=== PATIENT | female | born 1965 | race Caucasian/White ===

== ENCOUNTER → 2019-06-23 | Outpatient (CLI) | payer BC ==
--- NOTE | 2019-06-23 16:47 | RAD ---
Chest, PA and Lateral: Technique: PA and lateral views of the chest were obtained. History: Cough, wheezing. Comparison: 04/29/2011. Findings: Unchanged heart size.. The lungs are clear. The pleural margins are clear. Impression: No acute chest process is seen. Electronically signed by: Harley Mujica MD (06/23/2019 4:44 PM) [facility]
== END | disposition home or self-care (01) ==
LOC: DXRAD 10:22
PROVIDERS: ATTEND Registered Nurse
DX: R06.2 Wheezing (principal); R05 Cough
CPT/HCPCS: 71046

== ENCOUNTER → 2019-07-03 | Outpatient (CLI) | payer BC ==
--- NOTE | 2019-07-03 16:04 | RAD ---
ABDOMEN LTD History: Right abdominal pain Comparison: None. Findings: Multiple sonographic images of the abdomen are submitted. Gallbladder is present without intraluminal abnormality, wall thickening, pericholecystic fluid. Right lobe of the liver measured 14.4 cm longitudinal. No focal hepatic lesion is demonstrated. Hepatic echogenicity is within normal limits. Common bile duct is within limits at 0.6 cm. Right kidney measured 12.1 cm longitudinal, no hydronephrosis. There is no abnormality of the visualized pancreas. There is segmental visualization of the inferior vena cava. Impression: 1. No significant abnormality is demonstrated. Electronically signed by: Kwesi Saenz MD (07/03/2019 4:01 PM) [facility]
== END | disposition home or self-care (01) ==
LOC: US 08:30
PROVIDERS: ATTEND Registered Nurse
DX: R10.11 Right upper quadrant pain (principal)
CPT/HCPCS: 76705

== ENCOUNTER → 2019-09-11 | Outpatient (CLI) | payer BC ==
--- NOTE | 2019-09-11 11:56 | CARD ---
MR#: [id number] Date of Study: 09/11/2019 Ordering Physician: ELLIE ANG, Referring Physician: ELLIE ANG, Tech: Lise Rawls DARSHAN APPROVED REPORT EXAM: Two-dimensional and M-mode echocardiogram with Doppler and color Doppler. Other Information Quality : Good INDICATION Non-ischemic Cardiomyopathy 2D DIMENSIONS RVDd2.7 (2.9-3.5cm)Left Atrium(2D)4.7 (1.6-4.0cm) IVSd1.0 (0.7-1.1cm)Aortic Root(2D)2.5 (2.0-3.7cm) LVDd7.5 (3.9-5.9cm)LVOT Diameter2.1 (1.8-2.4cm) PWd0.9 (0.7-1.1cm)LVDs6.3 (2.5-4.0cm) FS (%) 7.0 %SV97.2 ml LVEF(%)15.0 (>50%) M-Mode DIMENSIONS LVDd6.66 (4.0-5.6cm)MV EPSS2.7 (<0.5cm) FS (%) 4 %LVDs6.39 (2.0-3.8cm) ESV(Teich)207.5 mlLVEF(%)9 (>50%) Aortic Valve AoV Peak Jesus.112.3cm/sAoV VTI15.9cm AO Peak GR.5.0mmHgLVOT Peak Jesus.75.3cm/s LVOT VTI 11.41cmAO Mean GR.3mmHg CORNELIA (VMAX)2.53ho2WBY (VTI)2.39cm2 AI P 1/2 Xpkr826sm Mitral Valve MV E Gppoedks873.1cm/sMV DECEL KCTS31pk MV A Kxcicvil40.9cm/sE/A Ratio3.2 Tricuspid Valve TR P. Gjfekzdl567fr/sRAP BBVHCXNO5bwCr TR Peak Gr.59nuOwLQRC62dvIn Pulmonary Vein S1 Vwubjjie22.5cm/sD2 Zvxjqeeb01.3cm/s LEFT VENTRICLE The Left Ventricle is severely dilated. There is normal left ventricular wall thickness. Left ventric le systolic function is severely impaired. The Ejection Fraction is 10-15%. There is severe global hy pokinesis of the left ventricle. RIGHT VENTRICLE The right ventricle is normal size. The right ventricular systolic function is normal. ATRIA The left atrium is mildly dilated. The right atrium size is normal. The interatrial septum is intact with no evidence for an atrial septal defect or patent foramen ovale as noted on 2-D or Doppler imagi ng. AORTIC VALVE The aortic valve is calcified but opens well. Doppler and Color Flow revealed trace to mild aortic re gurgitation. There is no significant aortic valvular stenosis. MITRAL VALVE The mitral valve is calcified but opens well. Mitral annular calcification is mild. There is no evide nce of mitral valve prolapse. There is no mitral valve stenosis. Doppler and Color-flow revealed mode rate mitral regurgitation. TRICUSPID VALVE The tricuspid valve is normal in structure and function. Doppler and Color Flow revealed mild tricusp id regurgitation. There is moderate pulmonary hypertension. The PA pressure was estimated at 59 mmHg. There is no tricuspid valve stenosis. PULMONIC VALVE Doppler and Color Flow revealed trace to mild pulmonic valvular regurgitation. There is no pulmonic v alvular stenosis. GREAT VESSELS The aortic root is normal in size. The ascending aorta is mildly dilated at 3.3 cm. The IVC is normal in size and collapses >50% with inspiration. PERICARDIAL EFFUSION There is no evidence of significant pericardial effusion. Critical Notification Critical Value: No <Conclusion> The Left Ventricle is severely dilated. Left ventricle systolic function is severely impaired. The Ejection Fraction is 10-15%. Doppler and Color-flow revealed moderate mitral regurgitation. Signed by : Ellie Ang, Electronically Approved : 09/11/2019 11:55:32
== END | disposition home or self-care (01) ==
LOC: ECHO 07:57
PROVIDERS: ATTEND Internal Medicine Cardiovascular Disease
DX: I08.8 Other rheumatic multiple valve diseases (principal); I27.20 Pulmonary hypertension, unspecified
CPT/HCPCS: 93306

== ENCOUNTER → 2019-11-06 | Outpatient (CLI) | payer BC ==
--- NOTE | 2019-11-06 10:34 | RAD ---
CT CHEST WO CONTRAST INDICATION: Right-sided chest pain. COMPARISON STUDY: None. TECHNIQUE: Unenhanced axial images were obtained through the lungs and upper abdomen. Coronal and sagittal multiplanar reconstructions were also obtained. PQRS compliance statement: One or more of the following individualized dose reduction techniques were utilized for this examination: 1. Automated exposure control 2. Adjustment of the mA and/or kV according to patient size 3. Use of iterative reconstruction technique FINDINGS: Lungs and Airways: Several indeterminate pulmonary nodules with branch sales and service representative nodules as follows: Left upper lobe solid nodule measuring 0.7 cm (series 2 image 41) and left lower lobe solid nodule measuring 0.6 cm (image 49). Normal central airways. Pleura: The pleural spaces are normal. Heart and Mediastinum: The visualized thyroid gland is normal in size and attenuation. No axillary or supraclavicular lymphadenopathy. Enlarged right lower paratracheal lymph node measures 1.3 cm short axis. Enlarged partially calcified left cardiophrenic lymph node measuring 0.9 cm. Cardiomegaly. Trace pericardial fluid. Coronary artery atherosclerotic disease. Atherosclerosis of the thoracic aorta and branch vessels. Abdomen: The visualized abdominal organs demonstrate no abnormality. Bones and Soft Tissues: Degenerative changes of the spine. IMPRESSION: 1. Several indeterminate pulmonary nodules measuring up to 0.7 cm. Recommend 3-6 month follow-up chest CT to assess stability. 2. There are a couple of mildly enlarged mediastinal lymph nodes. Attention on follow-up imaging. 3. Cardiomegaly and coronary artery atherosclerotic disease. Electronically signed by: Kwesi Caldwell MD (11/06/2019 10:31 AM) [id number]
== END | disposition home or self-care (01) ==
LOC: CT 09:56
PROVIDERS: ATTEND Physician Assistant Medical
DX: R91.1 Solitary pulmonary nodule (principal); I70.0 Atherosclerosis of aorta; R59.0 Localized enlarged lymph nodes; I51.7 Cardiomegaly
CPT/HCPCS: 71250

== ENCOUNTER → 2019-12-04 | Outpatient (CLI) | payer BC ==
[~2019-12-04] MED LIST: IOHEXOL 240 MG/ML 50ML VIAL. ONE; IOHEXOL 240 MG/ML 50ML VIAL. PO ONE; IOHEXOL 300 MG/ML 75 ML VIAL. IV ONE
[2019-12-04 08:40] LABS: CREATININE 1.2 mg/dL (0.6-1.0)
--- NOTE | 2019-12-04 10:21 | RAD ---
EXAM: CT Abdomen and Pelvis with IV contrast INDICATION: Reason: RIGHT SIDED ABDOMEN PAIN X 6 MONTHS, NODULES SEEN ALSO / Spl. Instructions: CREAT 1.2/GFR 60 - REDUCED OMNI 300 TO 60ML IV / TECHNIQUE: Multi-detector row CT images were acquired from the lung bases through the abdomen and pelvis with the use of IV contrast. Portal venous phase images were acquired. Sagittal and coronal images were acquired from the transaxial data. All CT scans performed at this facility utilize dose optimization techniques as appropriate to the exam, including the following: Automated exposure control and adjustment of the mA and/or KV according to patient size (this includes techniques or standardized protocols for targeted exams where dose is indication/reason for exam). IV CONTRAST: Administered ORAL CONTRAST: Administered COMPARISON: Abdominal ultrasound 07/03/2019 FINDINGS: LOWER CHEST: Intraventricular dilation. Calcifications in the visualized aortic valve. LIVER: Heterogeneous enhancement is present near the hilum between hepatic segments 4A and 4B. Hepatic arterial anatomy is difficult to assess given the predominantly portal venous phase images acquired.. BILIARY SYSTEM: Gallbladder is unremarkable. Bile ducts are not dilated. PANCREAS: Unremarkable SPLEEN: Unremarkable ADRENALS: Mild nodular fullness of the left adrenal gland measuring 1.1 x 1.6 cm (image 31 series 2) is noted. The right adrenal gland is unremarkable. KIDNEYS & URETERS: Unremarkable BLADDER: Unremarkable REPRODUCTIVE ORGANS: Unremarkable GASTROINTESTINAL: The stomach, small bowel, and colon are unremarkable. The appendix is normal. MESENTERY/PERITONEUM/RETROPERITONEUM: Unremarkable VASCULAR: Extensive arterial calcifications are present along with extensive noncalcified plaque throughout the abdominal aorta which measures up to 2.2 cm distally. Scattered arterial calcifications along the length of the right renal artery are noted. LYMPH NODES: No adenopathy OSSEOUS & SOFT TISSUES: Unremarkable IMPRESSION: 1. Evidence of extensive arterial vascular disease with heavy plaque burden in the abdominal aorta and including the right renal artery. Due to phase of contrast enhancement, the hepatic artery is not well visualized. There is abnormal heterogeneous enhancement in the lateral left hepatic lobe that could reflect variant perfusion or segmental infarcts. CT angiography of the abdomen or abdominal vascular duplex ultrasound could be pursued in further evaluation of arterial stenosis if clinically suspected. 2. There is dilation of the left ventricular chamber and scattered calcifications of the aortic valve. Correlate clinically for any evidence of aortic valvular disease and/or dilated cardiomyopathy. Electronically signed by: Sierra Devine MD (12/04/2019 10:18 AM) [id number]
== END | disposition home or self-care (01) ==
LOC: CT 07:55
PROVIDERS: ATTEND Internal Medicine Critical Care Medicine
DX: I70.0 Atherosclerosis of aorta (principal); I70.1 Atherosclerosis of renal artery; I99.8 Other disorder of circulatory system
CPT/HCPCS: 36415; 74177; 82565; 84520; Q9966; Q9967

== ENCOUNTER → 2020-02-26 | Outpatient (CLI) | payer BC ==
[2020-02-26 12:56] LABS: CALCIUM 9.3 mg/dL (8.5-10.1); CREATININE 1.2 mg/dL (0.6-1.0); POTASSIUM 3.9 mmol/L (3.5-5.1)
== END ==
LOC: LAB 12:11
PROVIDERS: ATTEND Internal Medicine Advanced Heart Failure and Transplant Cardiology
DX: I42.8 Other cardiomyopathies (principal); I27.21 Secondary pulmonary arterial hypertension; I47.2 Ventricular tachycardia; I50.22 Chronic systolic (congestive) heart failure; I11.0 Hypertensive heart disease with heart failure
CPT/HCPCS: 36415; 80048

== ENCOUNTER → 2020-02-26 | Outpatient (CLI) | payer BC ==
[2020-02-26 13:05] LABS: ALBUMIN 3.6 g/dL (3.4-5.0); ALBUMIN/GLOBULIN RATIO 0.8 (1.0-1.7); CALCIUM 9.4 mg/dL (8.5-10.1); CREATININE 1.3 mg/dL (0.6-1.0); GFR 42.8; POTASSIUM 3.8 mmol/L (3.5-5.1); TOTAL BILIRUBIN 0.5 mg/dL (0.2-1.0); TOTAL PROTEIN 7.9 g/dL (6.4-8.2)
== END | disposition home or self-care (01) ==
LOC: LAB 12:01
PROVIDERS: ATTEND Internal Medicine Cardiovascular Disease
DX: I42.9 Cardiomyopathy, unspecified (principal)
CPT/HCPCS: 36415; 80053; 83880

== ENCOUNTER → 2020-03-18 | Outpatient (CLI) | payer BC ==
[2020-03-18 15:22] LABS: CREATININE 1.1 mg/dL (0.6-1.0); POTASSIUM 3.8 mmol/L (3.5-5.1)
== END | disposition home or self-care (01) ==
LOC: LAB 14:15
PROVIDERS: ATTEND Nurse Practitioner Family
DX: I50.22 Chronic systolic (congestive) heart failure (principal)
CPT/HCPCS: 36415; 80048

== ENCOUNTER → 2020-04-02 | Outpatient (CLI) | payer BC ==
[2020-04-02 13:19] LABS: CALCIUM 9.2 mg/dL (8.5-10.1); CREATININE 1.1 mg/dL (0.6-1.0); POTASSIUM 3.7 mmol/L (3.5-5.1)
== END | disposition home or self-care (01) ==
LOC: LAB 12:01
PROVIDERS: ATTEND Nurse Practitioner Family
DX: I50.22 Chronic systolic (congestive) heart failure (principal)
CPT/HCPCS: 36415; 80048

== ENCOUNTER → 2020-04-10 | Outpatient (CLI) | payer BC ==
[2020-04-10 18:24] LABS: CALCIUM 9.5 mg/dL (8.5-10.1); CREATININE 1.2 mg/dL (0.6-1.0)
== END ==
LOC: LAB 16:54
PROVIDERS: ATTEND Nurse Practitioner Family
DX: I10 Essential (primary) hypertension (principal)
CPT/HCPCS: 36415; 80048

== ENCOUNTER 2020-05-14 12:09 | Inpatient (IN) | payer BC ==
[~2020-05-14] VITALS: Ht 162.6 cm; Wt 73.4 kg
[2020-05-14] MEDS ORDERED: ASPIRIN CHEWABLE 81 MG TABLET. PO ONE (12:30)
--- NOTE | 2020-05-14 12:30 | EKG ---
[address] [address] Test Date: 2020-05-14 Test Time: 12:25:46 Pat Name: HOLLY QUIROZ Department: Room: Gender: F On Line Csr: JAXON : 1965 Requested By: GLEN HEREDIA Order Number: [id number] Reading MD: Andrei Wood Measurements Intervals [place] Rate: 68 P: 51 AL: 172 QRS: -48 QRSD: 150 T: 109 QT: 482 QTc: 518 Interpretive Statements SINUS RHYTHM ABNORMAL LEFT AXIS DEVIATION NON SPECIFIC INTRAVENTRICULAR BLOCK ABNORMAL ECG RI6.02 No previous ECG available for comparison Electronically Signed On 05-17-2020 15:49:52 ELECTRICAL ASSISTANT by Andrei Wood
--- NOTE | 2020-05-14 12:32 | PHYS DOC ---
Past History Past Medical History: CAD, CHF (Ejection fraction 10%) Adult General Chief Complaint Chief Complaint: BACK PAIN OR INJURY [facility] HPI Patient is a 54-year-old female who presents via POV for chest pain. This is an acute on chronic phenomenon, has extensive cardiovascular history and is well- established in outpatient setting with Dr. Chase. She has a known ejection fraction last checked within this past year of 10%. She has been on Entresto medication for the last 3 weeks and has been taking all medications as scheduled, reports weight has fluctuated give her take 2 pounds in past 1 month but does admit to increased shortness of breath when laying flat which is new for her. She does admit when she started Entresto, her previously prescribed Lasix 40 mg twice daily was decreased to 20 mg twice daily. Nonetheless, patient has been wearing a LifeVest since September. Reports she had been having left-sided breast pain which she attributed to the LifeVest which is focused under her left lateral portion of her breast which is deep and radiates to her sternum and left scapular region. States this pain was constant prompting her to remove the LifeVest, she has not worn this in the past 4 days. Nothing known makes better or worse. Pain is deep and described as pressure. Currently ranks the pain 8 out of 10 in severity and states it is been this severe for the past 4 days. She has not been sleeping well. She has follow-up in outpatient setting with cardiology June 14 but feels she cannot make it until that visi t. She has tried numerous fbie-ubo-ilpreqk therapies such as lidocaine patches, Tums etc. but nothing has relieved her pain. Review of Systems Review of Systems Fourteen body systems of review of systems have been reviewed. See HPI for pertinent positives and negative responses, other gonzalez all other systems are negative, non-pertinent or non-contributory Allergies Allergies Allergies Coded Allergies Type Severity Reaction Last Updated Verified No Known Drug Allergies 12/04/19 No Physical Exam Physical Exam Constitutional: Well developed, well nourished, no acute distress, non-toxic appearance. HENT: Normocephalic, atraumatic, bilateral external ears normal, oropharynx moist, no oral exudates, nose normal. Eyes: PERRLA, EOMI, conjunctiva normal, no discharge. Neck: Normal range of motion, no tenderness, supple, no stridor. Cardiovascular: Heart rate regular, sinus rhythm, no murmurs rubs or gallops Lungs & Thorax: Bilateral breath sounds clear to auscultation Abdomen: Bowel sounds normal, soft, no tenderness, no masses, no pulsatile masses. Nonsurgical abdomen, no peritoneal signs Skin: Warm, dry, no erythema, no rash. Back: No tenderness, no CVA tenderness. Extremities: No tenderness, no cyanosis, no clubbing, ROM intact, no edema. Neurologic: Alert and oriented X 3, grossly normal motor & sensory function, no focal deficits noted. Psychologic: Affect normal, judgement normal, mood normal. Current Patient Data Vital Signs Vital Signs Date Time Temp Pulse Resp B/P (MAP) Pulse Ox O2 Delivery O2 Flow Rate FiO2 05/14/20 12:20 97.9 85 18 132/88 (103) 99 Room Air Lab Results Laboratory Tests Test 05/14/20 12:30 White Blood Count 7.4 x10^3/uL (4.0-11.0) Red Blood Count 3.84 x10^6/uL (3.50-5.40) Hemoglobin 11.7 g/dL (12.0-15.5) Hematocrit 36.1 % (36.0-47.0) Mean Corpuscular Volume 94 fL (79-100) Mean Corpuscular Hemoglobin 31 pg (25-35) Mean Corpuscular Hemoglobin Concent 33 g/dL (31-37) Red Cell Distribution Width 15.0 % (11.5-14.5) Platelet Count 174 x10^3/uL (140-400) Neutrophils (%) (Auto) 78 % (31-73) Lymphocytes (%) (Auto) 14 % (24-48) Monocytes (%) (Auto) 6 % (0-9) Eosinophils (%) (Auto) 1 % (0-3) Basophils (%) (Auto) 1 % (0-3) Neutrophils # (Auto) 5.8 x10^3uL (1.8-7.7) Lymphocytes # (Auto) 1.1 x10^3/uL (1.0-4.8) Monocytes # (Auto) 0.4 x10^3/uL (0.0-1.1) Eosinophils # (Auto) 0.1 x10^3/uL (0.0-0.7) Basophils # (Auto) 0.1 x10^3/uL (0.0-0.2) Prothrombin Time 12.4 SEC (9.4-11.4) Prothromb Time International Ratio 1.2 (0.9-1.1) Activated Partial Thromboplast Time 23 SEC (23-33) Sodium Level 133 mmol/L (136-145) Potassium Level 3.6 mmol/L (3.5-5.1) Chloride Level 100 mmol/L (98-107) Carbon Dioxide Level 25 mmol/L (21-32) Anion Gap 8 (6-14) Blood Urea Nitrogen 25 mg/dL (7-20) Creatinine 1.4 mg/dL (0.6-1.0) Estimated GFR (Cockcroft-Gault) 39.3 BUN/Creatinine Ratio 18 (6-20) Glucose Level 374 mg/dL (70-99) Calcium Level 8.5 mg/dL (8.5-10.1) Total Bilirubin 0.5 mg/dL (0.2-1.0) Aspartate Amino Transf (AST/SGOT) 21 U/L (15-37) Alanine Aminotransferase (ALT/SGPT) 42 U/L (14-59) Alkaline Phosphatase 120 U/L (46-116) Troponin I Quantitative 0.036 ng/mL (0-0.055) ME-Jnq-W-Type Natriuretic Peptide 65443 pg/mL (0-124) Total Protein 6.9 g/dL (6.4-8.2) Albumin 3.4 g/dL (3.4-5.0) Albumin/Globulin Ratio 1.0 (1.0-1.7) Lipase 77 U/L (73-393) EKG EKG EKG ordered and interpreted by myself at 1230 hrs. as sinus rhythm at 63 bpm, prolonged QRS at 150 and prolonged QTC at 518, left axis deviation, no acute ischemic findings, no STEMI. This EKG was compared to prior EKG obtained 04/29/2011 and appears grossly unchanged Radiology/Procedures Radiology/Procedures PROCEDURE: PORTABLE CHEST 1V PORTABLE CHEST 1V History: Reason: CP / Spl. Instructions: / History: Comparison: June 23, 2019 Findings: Patchy bibasilar opacities. No pleural effusion. No pneumothorax. Portable technique accentuates cardiac size. 8 mm left midlung nodule, unchanged. Impression: 1. Patchy bibasilar opacities, most likely atelectasis. 2. Left midlung nodule, unchanged. Recommend continued CT follow-up. Electronically signed by: Ky Pride DO (05/14/2020 1:02 PM) [id number] Heart Score HEART Score for Chest Pain: HEART Score for Chest Pain Response (Comments) Value History Highly Suspicious 2 ECG Normal 0 Age >45 - < 65 1 Risk Factors >3 Risk Factors or Hx CAD 2 Troponin < Normal Limit 0 Total 5 Risk Factors: Risk Factors: DM, Current or recent (<one month) smoker, HTN, HLP, family history of CAD, obesity. Risk Scores: Risk Factors: DM, Current or recent (<one month) smoker, HTN, HLP, family history of CAD, obesity. Course & Med Decision Making Course & Med Decision Making Pertinent Labs and Imaging studies reviewed. (See chart for details) Discussed most likely diagnosis of chest pain likely due to fluid overload and extremely high risk patient. I discussed need for diuresis, medication management and potential further cardiac work-up as indicated by hospitalist and/or granite setter in an inpatient setting. On-call cardiology service and case discussed, they were amenable to admitting patient to [facility]. On-call hospitalist, Dr. Batista contacted and case discussed, he was agreeable to admission for continued medical care I updated patient on plan of care and she was amenable. All questions and concerns addressed prior to transport to [facility] for further medical management Dragon Disclaimer Dragon Disclaimer This electronic medical record was generated, in whole or in part, using a voice recognition dictation system. Departure Departure: Impression: Primary Impression: Chest pain, rule out acute myocardial infarction Additional Impression: HFrEF (heart failure with reduced ejection fraction) Disposition: ADMITTED INPT THIS HOSP Admitting Physician: Martín Batista Condition: STABLE Referrals: SEMAJ DANIELLE (PCP) Problem Qualifiers GLEN HEREDIA DO May 14, 2020 12:32
[2020-05-14 13:03] LABS: BASO # 0.1 x10^3/uL (0.0-0.2); BASO % 1 % (0-3); EOS # 0.1 x10^3/uL (0.0-0.7); EOS % 1 % (0-3); HEMATOCRIT 36.1 % (36.0-47.0); HEMOGLOBIN 11.7 g/dL (12.0-15.5); LYMPH # 1.1 x10^3/uL (1.0-4.8); LYMPH % 14 % (24-48); MEAN CORPUSCULAR HEMOGLOBIN 31 pg (25-35); MEAN CORPUSCULAR HGB CONC 33 g/dL (31-37); MEAN CORPUSCULAR VOLUME 94 fL (79-100); MONO # 0.4 x10^3/uL (0.0-1.1); MONO % 6 % (0-9); NEUT # 5.8 x10^3uL (1.8-7.7); NEUT % 78 % (31-73); PLATELET COUNT 174 x10^3/uL (140-400); RED BLOOD COUNT 3.84 x10^6/uL (3.50-5.40); WHITE BLOOD COUNT 7.4 x10^3/uL (4.0-11.0)
--- NOTE | 2020-05-14 13:05 | RAD ---
PORTABLE CHEST 1V History: Reason: CP / Spl. Instructions: / History: Comparison: June 23, 2019 Findings: Patchy bibasilar opacities. No pleural effusion. No pneumothorax. Portable technique accentuates cardiac size. 8 mm left midlung nodule, unchanged. Impression: 1. Patchy bibasilar opacities, most likely atelectasis. 2. Left midlung nodule, unchanged. Recommend continued CT follow-up. Electronically signed by: Ky Pride DO (05/14/2020 1:02 PM) [id number]
[2020-05-14 13:10] LABS: CALCIUM 8.5 mg/dL (8.5-10.1); CREATININE 1.4 mg/dL (0.6-1.0); GFR 39.3; POTASSIUM 3.6 mmol/L (3.5-5.1)
[2020-05-14 13:26] LABS: ALBUMIN 3.4 g/dL (3.4-5.0); TOTAL BILIRUBIN 0.5 mg/dL (0.2-1.0); TOTAL PROTEIN 6.9 g/dL (6.4-8.2)
[2020-05-14] MEDS ORDERED: FUROSEMIDE 40 MG/4 ML VIAL IVP ONE (14:15)
--- NOTE | 2020-05-14 17:04 | HP ---
ADMIT DATE: 05/14/2020 ATTENDING PHYSICIAN: Dr. Edwards. CHIEF COMPLAINT: Chest pain and shortness of breath. HISTORY OF PRESENT ILLNESS: The patient is a 54-year-old female with an extensive cardiovascular history. She has had a nonischemic cardiomyopathy, last ejection fraction estimated 10%. She wears a LifeVest, but they are talking about putting in a pacemaker defibrillator. She has been on Entresto for the last 3 weeks. Medications have been scheduled. Weight has fluctuated up 2 pounds. She has orthopnea. She had chest pain, nonexertional. Her weight has been up. Her ankles are not swollen. The pain radiates to her sternum and scapular region. Nothing makes it better. No recent trauma. No COVID exposure. She has not been sleeping well. She is scheduled to see outpatient cardiology, 06/14. She has tried dxcx-lkk-zqycgqq remedies such as Lidoderm patches, Tums and nothing has relieved her pain. In the ED, the chest x-ray shows vascular congestion and a large globular heart. There is no overt infiltrates. Her cardiac enzymes were slightly elevated due to stress demand. She is admitted then with an exacerbation of congestive heart failure, acute on chronic. PAST MEDICAL HISTORY: Significant for the known coronary artery disease, congestive heart failure, last ejection fraction estimated at 10%. She has been wearing the LifeVest, which is very uncomfortable for her. CURRENT MEDICATIONS: Include Entresto and Lasix. ALLERGIES: She has no recorded drug allergies. SOCIAL HISTORY: She is a nonsmoker, nondrinker. She is grieving. Earlier this year, her 17-year-old son of idiopathic seizure disorder. FAMILY HISTORY: Her father of esophageal cancer at age 87 and her mom of colon cancer at age 71. REVIEW OF SYSTEMS: The patient is disabled now. She has quit working earlier this year. She has been grieving her son's . She denied any COVID exposure, some nausea, no vomiting, no bloody stools. All other systems reviewed turned to be negative. SOCIAL HISTORY: Please note that she is a nonsmoker, nondrinker. PHYSICAL EXAMINATION: GENERAL: When I saw her, this is a pleasant, middle-aged female. INITIAL VITAL SIGNS: Showed a blood pressure of 132/88, pulse is 85 and regular, temperature 97.9 degrees Fahrenheit. Her room air saturation is 99% on room air. HEENT: Head is without trauma. Pupils are reactive. Sclerae nonicteric. Oropharynx clear. NECK: Supple. Venous pressure distended at 45 degrees. LUNGS: Actually clear with good breath sounds. CARDIOVASCULAR: Showed distant heart tones, regular rhythm. She has a soft S3 gallop at the apex. Peripheral pulses are palpable and full. ABDOMEN: Soft, scaphoid, nontender, no organomegaly. Bowel sounds are hypoactive. EXTREMITIES: Showed trace edema. NEUROLOGIC: Focally intact. Speech is fluent. SKIN: Otherwise, warm and dry. LABORATORY DATA: Hemoglobin is 11.7 g/dL, white count 7400. Electrolytes: Sodium 133, potassium 3.6 mEq, creatinine is 1.4 mg percent, nonfasting blood sugar 370. BMP is elevated at 14,191. ASSESSMENT: 1. A 54-year-old female with acute on chronic congestive heart failure. 2. Dilated cardiomyopathy with an ejection fraction estimated 10%. 3. Gastroesophageal reflux disease. 4. Hyperglycemia. I am not aware of her diabetes history. PLAN: 1. Admit to the inpatient unit, ICU monitoring. 2. Continue Entresto. 3. Formal Cardiology consultation, they will see her in the morning. 4. Serial cardiac enzymes. FABIO EDWARDS MD DR: JAMI/gail JOB#: [id number] / [id number] SEMAJ Marmolejo
[2020-05-14 17:09] VITALS: BP 134/92
[2020-05-14] MEDS ORDERED: SACU1TAB4 PO (17:44)
[2020-05-14] MEDS ORDERED: FURO-69 PO (17:44)
[2020-05-14] MEDS ORDERED: CARV25TA PO (17:44)
[2020-05-14] MEDS ORDERED: SPIR25TA5 PO (17:44)
[2020-05-14] MEDS ORDERED: METF500T16 PO (17:44)
[2020-05-14 19:00] VITALS: BP 113/78
--- NOTE | 2020-05-14 19:52 | NUR ---
Patient arrived on unit with no issues. 20 gauge placed in right ac and promptly put on monitor.
[2020-05-14 20:00] VITALS: BP 131/84
[2020-05-14] MEDS: SACUBITRIL/VALSARTAN 49/51MG TABLET. PO SCH (21:10)
[2020-05-14 21:16] VITALS: BP 130/85
[2020-05-14 22:00] VITALS: BP 124/89
[2020-05-14 23:00] VITALS: BP 131/85
--- NOTE | 2020-05-14 23:15 | PDOC ---
PROVIDER NOTE PROVIDER NOTE PROVIDER NOTE CARDIOLOGY CONSULTATION NOTE: MS. Veloz is a pleasant 54 y.o woman well known to our service came to ER with back pain and some mild chest pain. No syncope or palpitations. She has some mild orthopnea. No changes to weight. Tolerating HF regimen well. In ER noted to have mild volume overload, given lasix and admitted given her severe CMP. Pmhx: 1. NICM Sochx: no alcohol, tob or illicit drugs. ALL: NKDA Meds reviewed. ROS: Negative unless noted above in HPI Constitutional: Well developed, well nourished, no acute distress, non-toxic appearance, positive interaction, playful. HENT: Normocephalic, atraumatic, bilateral external ears normal, oropharynx moist, no oral exudates, nose normal. Eyes: PERLL, EOMI, conjunctiva normal, no discharge. Neck: Normal range of motion, no tenderness, supple, no stridor. Cardiovascular: Normal heart rate, normal rhythm, no murmurs, no rubs, no gallops. Thorax and Lungs: Normal breath sounds, no respiratory distress, no wheezing, no chest tenderness, no retractions, no accessory muscle use. Abdomen: Bowel sounds normal, soft, no tenderness, no masses, no pulsatile masses. Skin: Warm, dry, no erythema, no rash. Back: No tenderness, no CVA tenderness. Extremeties: Intact distal pulses, no tenderness, no cyanosis, no clubbing, ROM intact, no edema. Musculoskeletal: Good ROM in all major joints, no tenderness to palpation or major deformities noted. Neurologic: Alert and oriented X 3, normal motor function, normal sensory function, no focal deficits noted. Psychologic: Affect normal, judgement normal, mood normal. Labs reviewed. Impression: 1. Mild acute on chronic systolic and diasotlic HF> PLan: 1. Continue home meds with IV lasix while hospitalized. BP/ HR labs are stable. Anticipate DC tomorrow. She has f/u with HF Txp clinic in 4 weeks. Thanks Justification of Admission: Justification of Admission: Justification of Admission Dx: Yes CHF: Hemodynamic Instability ELLIE ANG MD May 14, 2020 23:15
[2020-05-15] VITALS (10 sets, daily range): BP systolic 123–148; BP diastolic 75–92
[2020-05-15] MEDS: SACUBITRIL/VALSARTAN 49/51MG TABLET. PO SCH (08:19)
--- NOTE | 2020-05-15 09:22 | PDOC ---
CARDIO Progress Notes Date & Time Date of Service DATE: 05/15/20 TIME: 09:16 Time of Evaluation 09:16 Subjective Notes SOA better, no chest pain, dizziness, or LE edema Vitals Vitals Vital Signs Date Time Temp Pulse Resp B/P (MAP) Pulse Ox O2 Delivery O2 Flow Rate FiO2 05/15/20 08:19 71 136/80 05/15/20 06:02 14 96 Room Air 05/14/20 19:00 98.2 Weight Weight [ ] Input and Output I.O. Intake and Output 05/15/20 07:00 Intake Total 640 ml Balance 640 ml Intake Oral 640 ml Laboratory Labs Laboratory Tests Test 05/14/20 12:30 White Blood Count 7.4 x10^3/uL (4.0-11.0) Red Blood Count 3.84 x10^6/uL (3.50-5.40) Hemoglobin 11.7 g/dL (12.0-15.5) Hematocrit 36.1 % (36.0-47.0) Mean Corpuscular Volume 94 fL (79-100) Mean Corpuscular Hemoglobin 31 pg (25-35) Mean Corpuscular Hemoglobin Concent 33 g/dL (31-37) Red Cell Distribution Width 15.0 % (11.5-14.5) Platelet Count 174 x10^3/uL (140-400) Neutrophils (%) (Auto) 78 % (31-73) Lymphocytes (%) (Auto) 14 % (24-48) Monocytes (%) (Auto) 6 % (0-9) Eosinophils (%) (Auto) 1 % (0-3) Basophils (%) (Auto) 1 % (0-3) Neutrophils # (Auto) 5.8 x10^3uL (1.8-7.7) Lymphocytes # (Auto) 1.1 x10^3/uL (1.0-4.8) Monocytes # (Auto) 0.4 x10^3/uL (0.0-1.1) Eosinophils # (Auto) 0.1 x10^3/uL (0.0-0.7) Basophils # (Auto) 0.1 x10^3/uL (0.0-0.2) Prothrombin Time 12.4 SEC (9.4-11.4) Prothromb Time International Ratio 1.2 (0.9-1.1) Activated Partial Thromboplast Time 23 SEC (23-33) Sodium Level 133 mmol/L (136-145) Potassium Level 3.6 mmol/L (3.5-5.1) Chloride Level 100 mmol/L (98-107) Carbon Dioxide Level 25 mmol/L (21-32) Anion Gap 8 (6-14) Blood Urea Nitrogen 25 mg/dL (7-20) Creatinine 1.4 mg/dL (0.6-1.0) Estimated GFR (Cockcroft-Gault) 39.3 BUN/Creatinine Ratio 18 (6-20) Glucose Level 374 mg/dL (70-99) Calcium Level 8.5 mg/dL (8.5-10.1) Total Bilirubin 0.5 mg/dL (0.2-1.0) Aspartate Amino Transf (AST/SGOT) 21 U/L (15-37) Alanine Aminotransferase (ALT/SGPT) 42 U/L (14-59) Alkaline Phosphatase 120 U/L (46-116) Troponin I Quantitative 0.036 ng/mL (0-0.055) ZR-Xrs-P-Type Natriuretic Peptide 09581 pg/mL (0-124) Total Protein 6.9 g/dL (6.4-8.2) Albumin 3.4 g/dL (3.4-5.0) Albumin/Globulin Ratio 1.0 (1.0-1.7) Lipase 77 U/L (73-393) Physical Exams HEENT: Neck Supple W Full Motion Chest: Symmetric Lungs: Other (diminished bases) Heart: RRR Abdomen: Soft N/T Extremities: No Calf Tenderness Neurology: alert, oriented, follow commands Assessment Assessment 1. Acute on chronic systolic/diastolic CHF; improved with IV Lasix. 2. NICM; LVEF;10-15% LifeVest 3. CKD 4. Hypertension; controlled 5. Diabetes, II Recommendations Will give additional does of Lasix IV this am Resume oral lasix this afternoon Continue Entresto Consider AICD implantation Follow up with HF clinic 06/14/20 as previously scheduled. ROBERTH FERREIRA APRN May 15, 2020 09:21
--- NOTE | 2020-05-15 09:30 | NUR ---
Yeimi [facility] and Dr. Batista both here to see pt this morning. Pt has follow up cardiology appointment on 06/14/20. Pt will be discharged today.
[2020-05-15] MEDS ORDERED: POTASSIUM CHLORIDE 20 MEQ TABLET.ER. PO ONE (10:15)
[2020-05-15] MEDS ORDERED: FUROSEMIDE 40 MG/4 ML VIAL IVP ONE (10:15)
--- NOTE | 2020-05-15 11:21 | NUR ---
reviewed all discharge instructions with patient. Any questions patient had, were answered. IV dc'd with tip intact, pressure dressing applied. Patient is waiting for her to come get her.
--- NOTE | 2020-05-15 11:50 | NUR ---
pt's here to pick her up. Pt ambulated with this RN to pov upon discharge. pt did not want to be wheeled via wheelchair
--- NOTE | 2020-05-15 18:04 | DS ---
DATE OF DISCHARGE: 05/15/2020 ATTENDING PHYSICIAN: Dr. Edwards. FINAL DISCHARGE DIAGNOSES: 1. Acute on chronic congestive heart failure. 2. Nonischemic cardiomyopathy, severe, ejection fraction confirmed and estimated at 10%. 3. Gastroesophageal reflux disease. 4. Hyperglycemia. HISTORY OF PRESENT ILLNESS: The patient is a pleasant 54-year-old female with known nonischemic cardiomyopathy. She had been scheduled to see the heart failure and transplant team at [facility] in the first part of June. She presented to the ED with increasing shortness of breath and orthopnea. Recently, she had been started on Entresto therapy, but her Lasix dose was cut back due to elevation of creatinine. She had been on 40 b.i.d., cut back to 20 b.i.d. PHYSICAL EXAMINATION: Please see the dictated note. PERTINENT LABORATORY AND X-RAY STUDIES: The initial chest x-ray showed a large globular hard patchy bibasilar infiltrate, most likely fluid or atelectasis. She had definite cardiomegaly. The admission hemoglobin was 11.7 g/dL with white count of 7400. Sodium was 133, potassium 3.6 mEq. BNP was 14,190. Troponin level slightly elevated at 0.036 due to stress demand ischemia. Creatinine is 1.4 mg/dL, with a BUN of 25. COURSE IN THE HOSPITAL: The patient was admitted. She was seen in consultation by Cardiology. Lasix dose was increased. We continued her Entresto. She did well. Her weight was stable and blood pressure is stable. By the next day, her lungs were improved and clear and she will be followed up with outpatient lab work. She was discharged home with Coreg 25 mg b.i.d., Lasix 40 mg b.i.d., metformin daily, Entresto daily and Aldactone 25 mg daily. I suggested a followup visit and chemistry panel in 1 week's time. Again, she will follow up with her visit at [facility]. She was discharged then from our hospital in stable condition with explicit instructions and followup care. FABIO EDWARDS MD DR: JAMI/gail JOB#: [id number] / [id number] SEMAJ Marmolejo
== END 2020-05-15 11:50 | disposition home or self-care (01) | DRG 291 ==
LOC: ER 12:09 → ICU 17:26 → OBSVTOIN 17:26
PROVIDERS: ADMIT Hospitalist; ATTEND Hospitalist
DX: I13.0 Hypertensive heart and chronic kidney disease with heart failure and stage 1 through stage 4 chronic kidney disease, or unspecified chronic kidney disease (principal); I50.43 Acute on chronic combined systolic (congestive) and diastolic (congestive) heart failure; J98.11 Atelectasis; E11.22 Type 2 diabetes mellitus with diabetic chronic kidney disease; I42.0 Dilated cardiomyopathy; E11.65 Type 2 diabetes mellitus with hyperglycemia; I42.8 Other cardiomyopathies; I25.10 Atherosclerotic heart disease of native coronary artery without angina pectoris; R79.89 Other specified abnormal findings of blood chemistry; R91.1 Solitary pulmonary nodule; K21.9 Gastro-esophageal reflux disease without esophagitis; N18.9 Chronic kidney disease, unspecified; N64.4 Mastodynia; Z79.899 Other long term (current) drug therapy; Z80.0 Family history of malignant neoplasm of digestive organs; Z82.0 Family history of epilepsy and other diseases of the nervous system
CPT/HCPCS: 36415; 71045; 80053; 83690; 83880; 84484; 85025; 85610; 85730; 93005; 96374; J1940; 99285-25

== ENCOUNTER 2021-08-10 13:41 | Emergency (ER) | payer MEDICARE, MEDICAID ==
[~2021-08-10] VITALS: Ht 162.6 cm; Wt 79.5 kg
[~2021-08-10 13:41] MED LIST changes: +CARV25TA PO; +FURO-69 PO; -IOHEXOL 240 MG/ML 50ML VIAL. ONE; -IOHEXOL 240 MG/ML 50ML VIAL. PO ONE; -IOHEXOL 300 MG/ML 75 ML VIAL. IV ONE; +METF500T16 PO; +SACU1TAB4 PO; +SPIR25TA5 PO
[2021-08-10] MEDS ORDERED: IV NORMAL SALINE 1,000ML 1,000 ML IV ONE (14:15)
--- NOTE | 2021-08-10 14:42 | RAD ---
Exam performed: CT scan of the head and orbits without contrast. CT orbits Date of Service: 08/10/2021. Comparison: None available. Clinical History: Blurry vision in the left. Technique: Helical acquisitions are obtained from the foramen magnum to the vertex without intravenou s administration of contrast. In addition helical acquisitions also obtained through the orbits witho ut IV contrast. Sagittal and coronal reformatted images are obtained and reviewed. Findings: CT Head: The ventricles are midline without evidence of dilatation. Normal colindres-white differentiation is maint ained. There is no extra axial fluid collection, intraparenchymal hemorrhage or mass lesion. Small l eft lacunar infarct. The visualized portions of the orbits, paranasal sinuses and the mastoid air kia ls appear clear. The calvarium is intact. CT Orbits: There is a mucous retention cyst in the right maxillary sinus. The bony orbital margins and the intra orbital contents are bilaterally symmetric and unremarkable. The optic nerve and extraocular muscles appear grossly unremarkable. The visualized paranasal sinuses are clear. Nasal bones and zygomatic ar ches are intact The airway is central. Impression: 1. No acute intracranial process detected. 2. Chronic right maxillary sinus disease, otherwise essentially unremarkable CT orbits. PQRS Compliance Statement: One or more of the following individualized dose reduction techniques were utilized for this examinat ion: 1. Automated exposure control 2. Adjustment of the mA and/or kV according to patient size 3. Use of iterative reconstruction technique Electronically signed by: Janki Marcano MD (08/10/2021 2:40 PM) [facility]am
[2021-08-10 15:13] LABS: BASO # 0.1 x10^3/uL (0.0-0.2); BASO % 1 % (0-3); EOS # 0.3 x10^3/uL (0.0-0.7); EOS % 5 % (0-3); HEMATOCRIT 26.6 % (36.0-47.0); LYMPH # 0.9 x10^3/uL (1.0-4.8); LYMPH % 13 % (24-48); MEAN CORPUSCULAR HEMOGLOBIN 30 pg (25-35); MEAN CORPUSCULAR HGB CONC 34 g/dL (31-37); MEAN CORPUSCULAR VOLUME 89 fL (79-100); MONO # 0.5 x10^3/uL (0.0-1.1); MONO % 6 % (0-9); NEUT # 5.5 x10^3uL (1.8-7.7); NEUT % 75 % (31-73); PLATELET COUNT 200 x10^3/uL (140-400); RED BLOOD COUNT 2.98 x10^6/uL (3.50-5.40); RED CELL DISTRIBUTION WIDTH 15.4 % (11.5-14.5); WHITE BLOOD COUNT 7.3 x10^3/uL (4.0-11.0)
--- NOTE | 2021-08-10 15:16 | RAD ---
XR CHEST 1V History: Reason: high glucose pt has lvad pump x1 year / Spl. Instructions: / History: Comparison: May 14, [address] November 06, 2019 Findings: No consolidation or pleural effusion. Normal heart size. No pneumothorax. Left ventricular assist dev ice noted. Unchanged left mid lung nodules. Impression: 1. No acute cardiopulmonary process. 2. Left ventricular assist device. 3. Unchanged left midlung nodules. Recommend continued follow-up chest CT without contrast as previo usly stated. Electronically signed by: Ky Pride DO (08/10/2021 3:14 PM) [id number]
--- NOTE | 2021-08-10 15:25 | PHYS DOC ---
Past History Past Medical History: CAD, CHF Past Surgical History: Other Additional Past Surgical Histo: LVAD Alcohol Use: None General Adult EDM: Chief Complaint: VISION PROBLEM HPI: HPI: 55-year-old female past medical history of DM, HTN, HLD, HErEF/cardiomeglay and LVAD (for over 1 year, follows at ) presents to the ED with concern of painless, left eye blurry vision that started on noon on Tuesday. Denies any falls or head trauma. Reports her home glucose was 130 and her A1c has significantly improved in the past year. Does not wear any contact lenses. No recent head or neck infection. No associated eye discharge. Is able to make out objects but unable to read fine print. Review of Systems: Review of Systems: Constitutional: Denies fever or chills Eyes: Denies red eye or discharge HENT: Denies nasal congestion or sore throat Respiratory: Denies cough or shortness of breath Cardiovascular: Denies chest pain or edema GI: Denies nausea or vomiting, bloody stools or diarrhea : Denies dysuria, hematuria Musculoskeletal: Denies back pain or joint pain Integument: Denies rash or diaphoresis Neurologic: Denies headache, focal weakness or sensory changes Endocrine: Denies polyuria or polydipsia Lymphatic: Denies swollen glands Psychiatric: Denies depression or anxiety Current Medications: Current Meds: Current Medications Medications (Trade) Dose Ordered Sig/Beth Start Time Stop Time Status Last Admin Dose Admin Sodium Chloride 1,000 ml @ 1,000 mls/hr 1X ONCE 08/10/21 14:15 08/10/21 15:14 DC Allergies: Allergies: Allergies Coded Allergies Type Severity Reaction Last Updated Verified No Known Drug Allergies 12/04/19 No Physical Exam: PE: Constitutional: Well developed, well nourished, no acute distress, non-toxic appearance. HENT: Normocephalic, atraumatic, Eyes: Pupils equal reactive, EOMI, conjunctiva normal, no discharge, no fluorescein uptake of left eye, see nurse note for visual acuity, Armani-Pen 16 and 17 Neck: Normal range of motion, supple, Cardiovascular: S1/2 present, regular rhythm Lungs & Thorax: Speaking in full sentences, bilateral equal chest rise, no tachypnea or increased work of breathing Skin: Warm, dry, Extremities: No tenderness, no cyanosis, no lower extremity edema Neurologic: Alert and oriented X 3, no focal deficits noted. [] Psychologic: Affect normal, judgement normal, mood normal. [] Current Patient Data: Labs: Laboratory Tests Test 08/10/21 14:58 White Blood Count 7.3 x10^3/uL (4.0-11.0) Red Blood Count 2.98 x10^6/uL (3.50-5.40) L Hemoglobin 9.0 g/dL (12.0-15.5) L Hematocrit 26.6 % (36.0-47.0) L Mean Corpuscular Volume 89 fL (79-100) Mean Corpuscular Hemoglobin 30 pg (25-35) Mean Corpuscular Hemoglobin Concent 34 g/dL (31-37) Red Cell Distribution Width 15.4 % (11.5-14.5) H Platelet Count 200 x10^3/uL (140-400) Neutrophils (%) (Auto) 75 % (31-73) H Lymphocytes (%) (Auto) 13 % (24-48) L Monocytes (%) (Auto) 6 % (0-9) Eosinophils (%) (Auto) 5 % (0-3) H Basophils (%) (Auto) 1 % (0-3) Neutrophils # (Auto) 5.5 x10^3uL (1.8-7.7) Lymphocytes # (Auto) 0.9 x10^3/uL (1.0-4.8) L Monocytes # (Auto) 0.5 x10^3/uL (0.0-1.1) Eosinophils # (Auto) 0.3 x10^3/uL (0.0-0.7) Basophils # (Auto) 0.1 x10^3/uL (0.0-0.2) Acetone Level Neg (NEG) Vital Signs: Vital Signs Date Time Temp Pulse Resp B/P (MAP) Pulse Ox O2 Delivery O2 Flow Rate FiO2 08/10/21 14:00 98.1 87 16 130/75 (93) 98 Room Air EKG: EKG: Sinus rhythm 81 bpm, left axis deviation, T wave inversion 1 and aVL, no ST elevation or ST depression, QRS 248, QTc 532, Radiology/Procedures: Radiology/Procedures: IMAGING REPORT Signed PATIENT: PEDRO LUISSOO,HOLLY R ACCOUNT: [id number] : 1965 LOCATION: ER AGE: 55 SEX: F EXAM STATUS: REG ER ORD. PHYSICIAN: SEMAJ PRICE DO REASON: blurry vision leftg neye PROCEDURE: CT HEAD WO CONTRAST Exam performed: CT scan of the head and orbits without contrast. CT orbits Date of Service: 08/10/2021. Comparison: None available. Clinical History: Blurry vision in the left. Technique: Helical acquisitions are obtained from the foramen magnum to the vert ex without intravenous administration of contrast. In addition helical acquisitions also obtained through the orbits without IV contrast. Sagittal and coronal reformatted images are obtained and reviewed. Findings: CT Head: The ventricles are midline without evidence of dilatation. Normal colindres-white differentiation is maintained. There is no extra axial fluid collection, intrap arenchymal hemorrhage or mass lesion. Small left lacunar infarct. The visualized portions of the orbits, paranasal sinuses and the mastoid air cells appear clear. The calvarium is intact. CT Orbits: There is a mucous retention cyst in the right maxillary sinus. The bony orbital margins and the intraorbital contents are bilaterally symmetric and unremarkable. The optic nerve and extraocular muscles appear grossly unremarkable. The visualized paranasal sinuses are clear. Nasal bones and zygomatic arches are intact The airway is central. Impression: 1. No acute intracranial process detected. 2. Chronic right maxillary sinus disease, otherwise essentially unremarkable CT orbits. RS Compliance Statement: One or more of the following individualized dose reduction techniques were utilized for this examination: 1. Automated exposure control 2. Adjustment of the mA and/or kV according to patient size 3. Use of iterative reconstruction technique Electronically signed by: Devendra Marcano MD (08/10/2021 2:40 PM) [facility] DICTATED AND SIGNED BY: DEVENDRA MARCANO MD DATE: 08/10/21 1434 CC: HOLLI VASQUES MD; SEMAJ PRICE DO ~MTH0 0 IMAGING REPORT Signed PATIENT: HOLLY QUIROZ ACCOUNT: [id number] : 1965 LOCATION: ER AGE: 55 SEX: F EXAM STATUS: REG ER ORD. PHYSICIAN: SEMAJ PRICE DO REASON: high glucose pt has lvad pump x1 year PROCEDURE: CHEST AP ONLY XR CHEST 1V History: Reason: high glucose pt has lvad pump x1 year / Spl. Instructions: / History: Comparison: May 14, [address] November 06, 2019 Findings: No consolidation or pleural effusion. Normal heart size. No pneumothorax. Left ventricular assist device noted. Unchanged left mid lung nodules. Impression: 1. No acute cardiopulmonary process. 2. Left ventricular assist device. 3. Unchanged left midlung nodules. Recommend continued follow-up chest CT without contrast as previously stated. Electronically signed by: Ky Pride DO (08/10/2021 3:14 PM) [id number] DICTATED AND SIGNED BY: KY PRIDE DO DATE: 08/10/211511 CC: HOLLI VASQUES MD; SEMAJ PRICE DO ~MTH0 0 Heart Score: C/O Chest Pain: No Risk Factors: Risk Factors: DM, Current or recent (<one month) smoker, HTN, HLP, family history of CAD, obesity. Risk Scores: Score 0 - 3: 2.5% MACE over next 6 weeks - Discharge Home Score 4 - 6: 20.3% MACE over next 6 weeks - Admit for Clinical Observation Score 7 - 10: 72.7% MACE over next 6 weeks - Early Invasive Strategies Course & Med Decision Making: Course & Med Decision Making Pertinent Labs and Imaging studies reviewed. (See chart for details) Concern for left monocular painless vision loss for more than 48 hours-CT imaging not consistent with any stroke pathology. Labs with no evidence of DKA. Patient reports he is unable to see her eye clinic until October. I spoke to Dr. Villarreal with medical surgical here. Does not recommend any emergent ed-ed transfer for fundoscopic exam due to length of symptoms. Recommends patient follow-up in the eye clinic in the morning. Patient hemodynamically stable with normal blood pressure. Labs grossly unremarkable aside for slightly worsening anemia and acute on chronic kidney disease. Will discharge home with strict ED return precautions were given for fever, headache or nuchal rigidity. Encouraged urgent outpatient follow-up with PMD and ophthalmology. Life-threatening processes were considered but are low suspicion at this time, given history, physical exam and ED workup. Pt was educated on all prescription medications and adverse effects. All patient's questions were answered and pt was stable at time of discharge. Life/limb-threatening differential includes but is not limited to, acute angle-closure glaucoma, uveitis, corneal abrasion, CRVO/CRAO, PRES, retinal detachment, vitreous hemorrhage, temporal arteritis, optic neuritis, high- altitude retinopathy foreign body, globe rupture, episcleritis, corneal ulcer, traumatic iritis, hyphema or empyema, orbital cellulitis, orbital hematoma, lens dislocation, orbital wall fracture or toxidrome (digoxin, methanol, anticholinergic, hallucinogenic, etc). I have spoken with the patient and/or caregivers. I explained the patient's condition, diagnoses and treatment plan based on the information available to me at this time. I have answered the patient and/or caregiver's questions and addressed any concerns. The patient and/or caregivers have a good understanding of patient's diagnosis, condition and treatment plan as can be expected at this point. Vital signs have been stable. Patient's condition is stable and appropriate for discharge from the emergency department. Patient will pursue further outpatient evaluation with primary care physician or other designated or consulting physician as outlined in the discharge instructions. The patient and/or caregivers are agreeable to this plan of care and follow-up instructions have been explained in detail. The patient and/or caregivers have received these instructions in written form and have expressed an understanding of the discharge instructions. The patient and/or caregivers are aware that any significant change of condition or worsening of symptoms should prompt immediate return to this or the closest emergency department or call to 911. Elijah Disclaimer: Elijah Disclaimer: This electronic medical record was generated, in whole or in part, using a voice recognition dictation system. Departure Departure: Impression: Primary Impression: Monocular vision loss Additional Impressions: Acute kidney injury superimposed on chronic kidney disease Anemia Disposition: HOME / SELF CARE / HOMELESS Condition: STABLE Referrals: HOLLI VASQUES MD (PCP) Follow-up with your primary care physician in 24 to 48 hours for anemia and kidney diseas OR FOLLOW UP WITH FAMILY MEDICINE: [address], [address] [place] [address] Patient Instructions: Eye - Blurred Vision Additional Instructions: [facility] [place]-call at 8am tomorrow morning (I spoke with Phil in ed regarding this) [address] [facility], [address] [place] [address] EMERGENCY DEPARTMENT GENERAL DISCHARGE INSTRUCTIONS Thank you for coming to [facility] (ED) today and trusting us with you care. We trust that you had a positivie experience in our Emergency Department. If you wish to speak to the department management, you may call the director at [phone]. YOUR FOLLOW UP INSTRUCTIONS ARE FOLLOWS: 1. Do you have a private Doctor? If you do not have a private doctor, please ask for a resource list of physicians or clinics that may be able to assist you with f ollow up care. 2. The Emergency Physician has interpreted your x-rays. The X-Ray specialist will also review them. If there is a change in the findings, you will be notified in 48 hours when at all possible. 3. A lab test or culture has been done, your results will be reviewed and you will be notified if you need a change in treatment. ADDITIONAL INSTRUCTIONS AND INFORMATION: 1. Your care today has been supervised by a physician who is specially trained in emergency care. Many problems require more than one evaluation for a complete diagnosis and treatment. We recommend that you schedule your follow up appointment as recommended to ensure complete treatment of you illness or injury. If you are unable to obtain follow up care and continue to have a problem, or if your condition worsens, we recommend that you return to the ED. 2. We are not able to safely determine your condition over the phone nor are we able to give sound medical advice over the phone. For these safety reasons, if you call for medical advice we will ask you to come to the ED for further evaluation. 3. If you have any questions regarding these discharge instructions please call the ED at [phone]. SAFETY INFORMATION: In the interest of safety, wellness, and injury prevention; we encourage you to wear your sealbelt, if you smoke; quite smoking, and we encourage family to use a protect nisha helmet for bicycling and other sporting events that present an increased risk for head injury. IF YOUR SYMPTOMS WORSEN OR NEW SYMPTOMS DEVELOP, OR YOU HAVE CONCERNS ABOUT YOUR CONDITION; OR IF YOUR CONDITION WORSENS WHILE YOU ARE WAITING FOR YOUR FOLLOW UP APPOINTMENT; EITHER CONTACT YOUR PRIMARY CARE DOCTOR, THE PHYSICIAN WHOSE NAME AND NUMBER YOU WERE GIVEN, OR RETURN TO THE ED IMMEDIATELY. SEMAJ SALINAS DO Aug 10, 2021 15:25
[2021-08-10] MEDS ORDERED: FLUORESCEIN 1MG EYE STRIP. OS ONE (15:30)
[2021-08-10 15:45] LABS: ALBUMIN 3.3 g/dL (3.4-5.0); ALBUMIN/GLOBULIN RATIO 0.8 (1.0-1.7); CALCIUM 8.6 mg/dL (8.5-10.1); CREATININE 1.9 mg/dL (0.6-1.0); GFR 27.5; MAGNESIUM 2.2 mg/dL (1.8-2.4); POTASSIUM 4.1 mmol/L (3.5-5.1); TOTAL BILIRUBIN 0.3 mg/dL (0.2-1.0); TOTAL PROTEIN 7.3 g/dL (6.4-8.2)
[2021-08-10] MEDS ORDERED: TETRACAINE 0.5% OPHTH SOLUTION 4ML BOTTLE. OS ONE (16:00)
--- NOTE | 2021-08-10 16:47 | EKG ---
[address] [address] Test Date: 2021-08-10 Test Time: 14:29:03 Pat Name: HOLLY QUIROZ Department: Room: Gender: F Fish Packer: JAXON : 1965 Requested By: SEMAJ PRICE Order Number: [id number] Reading MD: Gonzalez Yanes MD Measurements Intervals [place] Rate: 81 P: 47 IA: 114 QRS: -87 QRSD: 208 T: 146 QT: 452 QTc: 532 Interpretive Statements SINUS RHYTHM LAD POOR R WAVE PROGRESSION Electronically Signed On 08-18-2021 8:28:37 DOCUMENTATION DESIGNER by Gonzalez Yanes MD
[2021-08-10 17:29] VITALS: BP 111/81
== END 2021-08-10 17:55 | disposition home or self-care (01) ==
LOC: ER 13:41
DX: H54.62 Unqualified visual loss, left eye, normal vision right eye (principal); N17.9 Acute kidney failure, unspecified; N18.9 Chronic kidney disease, unspecified; D63.1 Anemia in chronic kidney disease; I25.10 Atherosclerotic heart disease of native coronary artery without angina pectoris; I50.9 Heart failure, unspecified
CPT/HCPCS: 36415; 70450; 70480; 71045; 80053; 82010; 83690; 83735; 84484; 85025; 93005; 96360; 99285; J7030

== ENCOUNTER → 2021-08-13 | Outpatient (CLI) | payer MEDICARE, MEDICAID ==
[2021-08-10 17:29] VITALS: BP 111/81
[2021-08-13 14:13] LABS: CALCIUM 8.6 mg/dL (8.5-10.1); CREATININE 1.9 mg/dL (0.6-1.0); GFR 27.5; POTASSIUM 4.4 mmol/L (3.5-5.1)
== END ==
LOC: LAB 13:06
PROVIDERS: ATTEND Internal Medicine Advanced Heart Failure and Transplant Cardiology
DX: Z95.811 Presence of heart assist device (principal)
CPT/HCPCS: 36415; 80048

== ENCOUNTER → 2021-08-19 | Outpatient (CLI) | payer MEDICARE, MEDICAID ==
[2021-08-10 17:29] VITALS: BP 111/81
== END ==
LOC: LAB 14:41
PROVIDERS: ATTEND Internal Medicine Advanced Heart Failure and Transplant Cardiology
DX: Z95.811 Presence of heart assist device (principal)
CPT/HCPCS: 36415; 85610

== ENCOUNTER → 2021-08-25 | Outpatient (CLI) | payer MEDICARE, MEDICAID ==
[2021-08-10 17:29] VITALS: BP 111/81
[2021-08-25 14:26] LABS: CALCIUM 8.8 mg/dL (8.5-10.1); CREATININE 1.8 mg/dL (0.6-1.0); GFR 29.3; POTASSIUM 4.5 mmol/L (3.5-5.1)
== END ==
LOC: LAB 13:20
PROVIDERS: ATTEND Internal Medicine
DX: Z95.811 Presence of heart assist device (principal)
CPT/HCPCS: 36415; 80048

== ENCOUNTER → 2021-11-02 | Outpatient (CLI) | payer MEDICARE, MEDICAID ==
[2021-11-02 12:35] LABS: ALBUMIN 3.3 g/dL (3.4-5.0); ALBUMIN/GLOBULIN RATIO 0.7 (1.0-1.7); CALCIUM 8.9 mg/dL (8.5-10.1); CREATININE 1.9 mg/dL (0.6-1.0); GFR 27.5; POTASSIUM 4.3 mmol/L (3.5-5.1); TOTAL BILIRUBIN 0.2 mg/dL (0.2-1.0); TOTAL PROTEIN 7.8 g/dL (6.4-8.2)
== END ==
LOC: LAB 11:08
PROVIDERS: ATTEND Internal Medicine Advanced Heart Failure and Transplant Cardiology
DX: Z95.811 Presence of heart assist device (principal)
CPT/HCPCS: 36415; 80053